=== PATIENT | male | born 1965 | race Caucasian/White ===

== ENCOUNTER 2022-04-06 12:17 | Emergency (ER) | payer OTHER, SELFPAY ==
[2022-04-06 12:20] VITALS: BP 130/79; PULSE 83; RESP 19; TEMP 36.7; O2SAT 96; BMI 31.2
--- NOTE | 2022-04-06 12:55 | EXP.UTC ---
Discharge Plan Disposition Patient Disposition: Home, Self-Care Condition: Good Prescriptions Prescriptions: New amoxicillin [amoxicillin] 875 mg tablet 875 mg PO Q12H Qty: 20 0RF benzonatate [benzonatate] 100 mg capsule 100 mg PO TIDP PRN (Reason: Cough) Qty: 30 0RF methylprednisolone 4 mg Tablets,Dose Pack 4 mg PO DIRECTED Qty: 21 0RF Referrals Follow up/Referrals: Provider,Referral, MD [Primary Care Provider] - See instructions Activity Restrictions/Add. Instructions Additional Instructions/Restrictions: Drink plenty of fluids. Take tylenol or ibuprofen for pain or fever. Take the medications as directed. Follow up with your regular doctor. GO TO THE ER FOR ANY WORSENING SYMPTOMS Clinical Impressions Clinical Impression: Pharyngitis, Acute viral syndrome Instructions Patient Instructions: Sore Throat, DI for Pharyngitis/Tonsillopharyngitis -- Adult, Preventing the Spread of Coronavirus Discharge Instructions Discharge ED Provider: Armen Ruby [facility] General Stated complaint: sore throat Mode of Arrival: Ambulatory Source of Information: Patient Limitations: No Limitations Time Seen by Provider: 04/06/22 12:55 Description of Symptoms (Recalled from Triage Doc. by RN): PATIENT C/O SORE THROAT AND STOMACH ACHE SINCE THURSDAY HEENT Symptoms (Recalled from RN notes): Yes Resp Symptoms (Recalled from RN notes): No Skin Symptoms (Recalled from RN notes): No MS Symptoms (Recalled from RN notes): No Functional Status (Recalled from RN notes): WNL History of Present Illness Provider Complaint: He c/o sore throat for the past 2 days. HE has had chills and body aches also. He denies shortness of breath and significant cough. Related Data Previous Rx's Medication Instructions Recorded amoxicillin 875 mg tablet 875 mg PO Q12H #20 tabs 04/06/22 benzonatate 100 mg capsule 100 mg PO TIDP PRN Cough #30 caps 04/06/22 methylprednisolone 4 mg tablets in 4 mg PO DIRECTED #21 tabs 04/06/22 a dose pack Allergies Allergy/AdvReac Type Severity Reaction Status Date / Time No Known Allergies Allergy Verified 04/06/22 12:36 Worker's Comp Is this a Worker's Comp case?: No [facility] Medical History No significant past medical history Social History Smoking Status: Unknown if ever smoked alcohol intake: never current occupational status: other Travel in the last 8 weeks: None ROS Obtained: Yes All systems reviewed & no additional complaints except as documented Constitutional Constitutional: Reports chills and Reports fever(s) Eyes Eyes: Denies eye discharge ENT Ears, Nose, Mouth, and Throat: Reports as per HPI Cardiovascular Cardiovascular: Denies chest pain Respiratory Respiratory: Denies chest congestion and Reports cough Gastrointestinal Gastrointestingal: Reports nausea; Denies abdominal pain, constipation, cramping, diarrhea or vomiting Musculoskeletal Musculoskeletal: Denies arthralgias Integumentary/Breasts Skin/Breast: Denies rash Neurologic Neurologic: Denies paresthesias Physical Exam General General appearance: alert and in no apparent distress Head Head exam: atraumatic, normocephalic and normal inspection Eye Eye exam: Present normal appearance, PERRL and EOMI ENT ENT exam: Present mucous membranes moist and normal external ear exam Expanded ENT Exam TM/Canal exam: Bilateral TM: erythema and bulging Nose exam: Absent sinus tenderness Mouth exam: Present normal external inspection; Absent drooling Teeth exam: Present normal inspection Throat exam: Present tonsillar erythema, tonsillomegaly and tonsillar exudate Neck Neck exam: Present normal inspection, full ROM and trachea midline; Absent tenderness, meningismus or lymphadenopathy Chest Chest inspection: Present normal inspection and symmetric chest wall rise; Absent tenderness Respir
[2022-04-06 12:57] LABS: UTC Strep Screen (Rapid) Negative (Negative)
[2022-04-06 13:07] VITALS: BP 130/79; PULSE 83; RESP 19; TEMP 36.7; O2SAT 96
== END 2022-04-06 13:13 | disposition home or self-care (01) ==
PROVIDERS: Emergency Provider Nurse Practitioner Family
DX: J02.9 Acute pharyngitis, unspecified (principal); B34.9 Viral infection, unspecified
CPT/HCPCS: 87880; 99212; C9803; G0463; U0003; U0005

== ENCOUNTER 2022-12-05 19:16 | Emergency (ER) | payer OTHER, SELFPAY ==
--- NOTE | 2022-12-05 19:18 | EXP.UTC ---
Discharge Plan Disposition Patient Disposition: Home, Self-Care Condition: Good Prescriptions Prescriptions: New nystatin 100,000 unit/mL suspension 5 ml PO QID 10 Days Qty: 200 0RF Rx Instructions: swish and swallow No Action atorvastatin 10 mg tablet 10 mg PO HS Label Comments: TAKE 1 TABLET BY MOUTH EVERY DAY hydrochlorothiazide 25 mg tablet 25 mg PO DAILY Label Comments: TAKE 1 TABLET BY MOUTH EVERY DAY Referrals Follow up/Referrals: Greg Hirsch [Primary Care Provider] - See instructions Activity Restrictions/Add. Instructions Additional Instructions/Restrictions: Drink plenty of fluids. Take tylenol for pain. Take the medications as directed. Follow up with your regular doctor. GO TO THE ER FOR ANY WORSENING SYMPTOMS Clinical Impressions Clinical Impression: Thrush Instructions Patient Instructions: DI for Thrush Discharge ED Provider: Armen Ruby [facility] General Stated complaint: Blisters on tongue and throat, sore throat Time Seen by Provider: 12/05/22 19:28 History of Present Illness Provider Complaint: HE has been on antibiotics for the past 2 weeks for some dental work he had done. For the past 3 days he has had irritation of his throat, tongue and roof of his mouth. Related Data Home Medications Medication Instructions Recorded Confirmed atorvastatin 10 mg tablet 10 mg PO HS Cholesterol 12/05/22 12/05/22 hydrochlorothiazide 25 mg tablet 25 mg PO DAILY Hypertension 12/05/22 12/05/22 Previous Rx's Medication Instructions Recorded nystatin 100,000 unit/mL oral 5 ml PO QID 10 days #200 mL 12/05/22 suspension Allergies Allergy/AdvReac Type Severity Reaction Status Date / Time No Known Allergies Allergy Verified 04/06/22 12:36 [facility] Disclaimer: The information contained in this section may have been updated after the patient was seen, as this information can be updated by other users. Medical History No significant past medical history Social History Smoking Status: Unknown if ever smoked alcohol intake: never current occupational status: other Travel in the last 8 weeks: None ROS Obtained: Yes All systems reviewed & no additional complaints except as documented Constitutional Constitutional: Denies chills and Denies fever(s) Eyes Eyes: Denies eye discharge ENT Ears, Nose, Mouth, and Throat: Reports as per HPI, Denies otalgia and Denies sore throat Cardiovascular Cardiovascular: Denies chest pain Respiratory Respiratory: Denies shortness of breath, Denies chest congestion, Denies cough, Denies stridor and Denies wheezing Gastrointestinal Gastrointestingal: Denies nausea or vomiting Musculoskeletal Musculoskeletal: Reports system reviewed and no additional complaints, except as documented and Denies arthralgias Integumentary/Breasts Skin/Breast: Denies rash Neurologic Neurologic: Denies paresthesias Allergic/Immunologic Allergic/Immunologic: Denies wheezing Physical Exam General General appearance: alert and in no apparent distress Head Head exam: atraumatic, normocephalic and normal inspection Eye Eye exam: Present normal appearance, PERRL and EOMI ENT ENT exam: Present mucous membranes moist, TM's normal bilaterally and normal external ear exam Expanded ENT Exam Nasal speculum exam: Bilateral: normal Mouth exam: Present other (very erythemic, several white patches noted. ) Throat exam: Present tonsillar erythema Neck Neck exam: Present normal inspection, full ROM and trachea midline; Absent meningismus or lymphadenopathy Chest Chest inspection: Present normal inspection and symmetric chest wall rise; Absent tenderness Respiratory Respiratory exam: Present normal lung sounds bilaterally; Absent respiratory distress Cardiovascular Cardiovascular exam: Present regular rate and normal r
[2022-12-05 19:20] VITALS: BP 125/70; PULSE 72; RESP 20; TEMP 36.9; O2SAT 96; BMI 32.3
[2022-12-05 19:45] LABS: UTC Strep Screen (Rapid) Negative (Negative)
[2022-12-05 19:55] VITALS: BP 125/70; PULSE 72; RESP 20; TEMP 36.9; O2SAT 96
== END 2022-12-05 19:58 | disposition home or self-care (01) ==
PROVIDERS: Emergency Provider Nurse Practitioner Family; PCP Family Medicine
DX: B37.0 Candidal stomatitis (principal)
CPT/HCPCS: 87880; 99212; 99214; G0463